=== PATIENT | male | born 1985 | race African-American/Black ===

== ENCOUNTER 2020-09-06 12:13 | Emergency (ER) | payer SELFPAY ==
[~2020-09-06] VITALS: Ht 175.3 cm; Wt 82.1 kg
--- NOTE | 2020-09-06 12:25 | NUR ---
The patient is BIBRA from [place] c/o behavioral, pt denies any si/hi. The patient yelling and using inappropriate words with no apparent distress. Denies pain. In room air and denies SOB. Respiration regular and unlabored. Will continue to monitor the patient.
--- NOTE | 2020-09-06 14:10 | NUR ---
ER PHLEB AT BEDSIDE FOR BLOOD DRAW.
[2020-09-06 14:25] LABS: BASOPHILS # (AUTO) 0.1 /CMM (0.0-0.2); BASOPHILS % (AUTO) 0.8 % (0.0-2.0); EOSINOPHILS % (AUTO) 1.3 % (0.0-6.0); HEMATOCRIT 42 % (39-51); LYMPHOCYTES # (AUTO) 1.4 /CMM (0.8-4.8); LYMPHOCYTES % (AUTO) 20.3 % (20.0-44.0); MEAN CORPUSCULAR HGB CONC 33 g/dl (31.0-36.0); MEAN CORPUSCULAR VOLUME 89 fL (80-96); MONOCYTES # (AUTO) 0.4 /CMM (0.1-1.30); MONOCYTES % (AUTO) 5.6 % (2.0-12.0); NEUTROPHILS # (AUTO) 4.8 /CMM (1.8-8.9); PLATELET COUNT (AUTO) 231 /CMM (150-450); RED BLOOD CELL COUNT(AUTO) 4.78 MIL/uL (4.5-6.0); WHITE BLOOD COUNT (AUTO) 6.7 K/uL (4.3-11.0)
--- NOTE | 2020-09-06 14:30 | NUR ---
COVID SWAB DONE AND SENT TO THE LAB
[2020-09-06 14:42] LABS: CALCIUM, SERUM 8.7 mg/dL (8.5-10.1); CREATININE 1.3 mg/dL (0.6-1.3); POTASSIUM 4.2 mmol/L (3.5-5.1)
[2020-09-06 14:49] LABS: ALBUMIN 3.7 g/dL (3.4-5.0); BILIRUBIN,DIRECT 0.1 mg/dL (0.0-0.2); BILIRUBIN,TOTAL 0.3 mg/dL (0.2-1.0); TOTAL PROTEIN, SERUM 7.6 g/dL (6.4-8.2)
--- NOTE | 2020-09-06 16:45 | NUR ---
THE PATIENT SLEEPING. RESPONSIVE TO VERBAL STIMULI. DENIES DISTRESS. WILL CONTINUE TO MONITOR THE PATIENT.
--- NOTE | 2020-09-06 19:16 | NUR ---
Yamilex Morocho for pet evaluation
--- NOTE | 2020-09-06 20:38 | NUR ---
PT CLEARED FROM 5150 HOLD BY LEOLA CRISIS NANOTECHNOLOGY TECHNICIAN
--- NOTE | 2020-09-06 20:43 | NUR ---
Patient discharged to home in stable condition. Written and verbal after care instructions given. Patient verbalizes understanding of instruction. Pt aaox4 no acute distress noted, resp even and unlabored. pt denies si/hi at this time.
[2020-09-06 21:28] VITALS: BP 129/64
--- NOTE | 2020-09-06 21:28 | NUR ---
food tray provided to pt per pt request.
== END 2020-09-06 21:29 | disposition home or self-care (01) ==
LOC: ER 12:15
DX: R45.1 Restlessness and agitation (principal); F10.129 Alcohol abuse with intoxication, unspecified; F15.10 Other stimulant abuse, uncomplicated; Y90.3 Blood alcohol level of 60-79 mg/100 ml; Z20.822 Contact with and (suspected) exposure to COVID-19; F19.10 Other psychoactive substance abuse, uncomplicated
CPT/HCPCS: 36415; 80048; 80076; 80143; 80307; 80320; 85025; 87426; 99284; C9803; G0480